=== PATIENT | male | born 2000 | race American Indian/Alaskan Native ===

== ENCOUNTER 2021-05-15 19:52 | Emergency (ER) | payer SELFPAY ==
[2021-05-15 19:58] VITALS: BP 122/62
--- NOTE | 2021-05-15 20:28 | XRay Report ---
LEFT FOOT 3 VIEWS INDICATION / CLINICAL INFORMATION: Jumped down 7 ft into tool box....fall with left foot pain. COMPARISON: None available. FINDINGS: BONES / JOINT(S): No acute fracture or subluxation. No significant arthritis. SOFT TISSUES: There is soft tissue irregularity/laceration involving the heel pad with an overlying b andage present. No radiopaque foreign body is seen. ADDITIONAL FINDINGS: None. Signer Name: Sang Diaz MD Signed: 05/15/2021 8:24 PM Workstation Name: [id number]
[2021-05-15] MEDS ORDERED: HYDROcodone/ACETAMINOPHEN 5-325 MG TAB PO ONE (20:34)
[2021-05-15] MEDS ORDERED: cephALEXin 500 MG CAP PO ONE (20:34)
[2021-05-15] MEDS ORDERED: LIDOCAINE (1%) 10 MG/1 ML VIAL 20 ML MDV INFILTRATI ONE (20:34)
--- NOTE | 2021-05-15 20:41 | Emergency Department Report ---
ED General Adult HPI - General Chief complaint: Extremity Injury, Lower Stated complaint: DEEP LACERATION TO LEFT FOOT Source: patient Mode of arrival: Ambulatory Limitations: No Limitations - History of Present Illness Initial comments: Patient 21-year-old male who presents for a laceration to the right foot. States he jumped over upstairs rail landing on his heel causing laceration versus metal tool box inside his house. Patient was able to partially weight- bear to get to vehicle to present to ED tonight. Last tetanus 1 year ago. There is no numbness tingling there is no obvious deformity. Bleeding controlled with direct pressure applied by patient. - Related Data Previous Rx's Medication Instructions Recorded Last Taken Type cephALEXin [Keflex] 500 mg PO Q8HR 7 Days #21 cap 05/15/21 Unknown Rx traMADoL [Ultram] 50 mg PO Q6HR PRN #12 tablet 05/15/21 Unknown Rx Allergies Allergy/AdvReac Type Severity Reaction Status Date / Time No Known Allergies Allergy Unverified 05/15/21 19:55 ED Review of Systems ROS: Stated complaint: DEEP LACERATION TO LEFT FOOT Other details as noted in HPI Constitutional: denies: chills, fever Eyes: denies: eye pain, eye discharge, vision change ENT: denies: ear pain, throat pain Respiratory: denies: cough, shortness of breath, wheezing Cardiovascular: denies: chest pain, palpitations Endocrine: no symptoms reported Gastrointestinal: denies: abdominal pain, nausea, diarrhea Genitourinary: denies: urgency, dysuria Musculoskeletal: other (foot laceration). denies: back pain, joint swelling, arthralgia Skin: other (laceration). denies: rash, lesions Neurological: denies: headache, weakness, paresthesias Psychiatric: denies: anxiety, depression Hematological/Lymphatic: denies: easy bleeding, easy bruising ED Past Medical Hx - Past Medical History Previous Medical History?: No - Social History Smoking Status: Current Some Day Smoker - Medications Home Medications: Home Medications Medication Instructions Recorded Confirmed Last Taken Type cephALEXin [Keflex] 500 mg PO Q8HR 7 Days #21 cap 05/15/21 Unknown Rx traMADoL [Ultram] 50 mg PO Q6HR PRN #12 tablet 05/15/21 Unknown Rx ED Physical Exam - General Limitations: No Limitations General appearance: alert, in no apparent distress - Head Head exam: Present: normocephalic, normal inspection - Expanded Head Exam Expanded Head exam: Absent: laceration, abrasion, contusion, hematoma - Eye Eye exam: Present: normal appearance, EOMI Pupils: Present: normal accommodation - ENT ENT exam: Present: normal exam, mucous membranes moist - Neck Neck exam: Present: normal inspection, full ROM. Absent: tenderness - Respiratory Respiratory exam: Present: normal lung sounds bilaterally. Absent: respiratory distress, wheezes, stridor, chest wall tenderness - Cardiovascular Cardiovascular Exam: Present: regular rate, normal rhythm, normal heart sounds. Absent: systolic murmur, diastolic murmur, rubs, gallop - GI/Abdominal GI/Abdominal exam: Present: soft, normal bowel sounds. Absent: distended, tenderness, guarding, rebound, rigid, bruit, hernia - Rectal Rectal exam: Present: deferred - Extremities Exam Extremities exam: Present: normal inspection, full ROM, normal capillary refill - Expanded Lower Extremity Exam Left Foot/Toe exam: Present: full ROM, tenderness, laceration (10 cm laceration left heel , no nerve or tendon damage rom intact , distal pulses intact ), calcaneal tenderness. Absent: ecchymosis, deformity, crepidus, dislocation, foreign body, tenderness at base of 5th metatarsal Neuro vascular tendon exam: Absent: pulse deficit, motor deficit, sensory deficit, tendon deficit Gait: Positive: observed and limited by pain - Back Exam Back exam: Present: normal inspection, full ROM. Absent: tenderness, muscle spasm, paraspinal tenderness, vertebral tenderness - Neurological Exam Neurological exam: Present: alert, oriented X3, CN II-XII intact, reflexes normal. Absent: motor sensory deficit - Expanded Neurological Exam Expanded Patient oriented to: Present: person, place, time Speech: Present: fluid speech Motor strength exam: RUE: 5, LUE: 5, RLE: 5, LLE: 5 DTR: ankle (R): 2+, ankle (L): 2+ Best Eye Response ([place]): (4) open spontaneously Best Motor Response ([place]): (6) obeys commands Best Verbal Response ([place]): (5) oriented [place] Total: 15 - Psychiatric Psychiatric exam: Present: normal affect, normal mood - Skin Skin exam: Present: warm, dry, intact, normal color, other (laceration as above ). Absent: rash ED Course Vital Signs 05/15/21 19:56 Temperature 98.0 F Pulse Rate 83 Respiratory 18 Rate Blood Pressure 122/62 O2 Sat by Pulse 98 Oximetry - Laceration /Wound Repair Left Plantar Foot Wound Location: lower extremity (left heel laceration 10 cm irregular, no nerve, tendon, or muscle damage, rom intact, distal pulses intact, bleeding is controled, wound cleaned with betadine solution, anesthesia wiht 1% lidocaine x 5 cc, wound irrigated with 250 cc sterile saline wound manually exsplored no foreign body no nerve ) - Moderate Sedation Additional Comments: left heel laceration 10 cm irregular, no nerve, tendon, or muscle damage, rom intact, distal pulses intact, bleeding is controled, wound cleaned with betadine solution, anesthesia wiht 1% lidocaine x 5 cc, wound irrigated with 250 cc sterile saline wound manually exsplored no foreign body no nerve muscle or tendon damage, wound closed with 3.0 prolene x 25 sutures running, edges well approximated, all bleeding controlled , sterile dressing applied, PULP DRIER remains intact , rom remains intact, pt given wound care instructions including follow up with primary care doctor in 2-3 days for wound check, and 7-10 days for suture removal. ED Medical Decision Making - Medical Decision Making Laceration repaired see procedure note. Patient given wound care instructions including follow-up with primary care doctor in 2 days for wound check, follow- up with primary care doctor in 7 to 10 days for suture removal, patient given prescriptions, return to ED for symptoms of infection. Critical care attestation.: If time is entered above; I have spent that time in minutes in the direct care of this critically ill patient, excluding procedure time. ED Disposition Clinical Impression: Laceration of foot Qualifiers: Encounter type: initial encounter Laterality: left Qualified Code(s): S91.312A - Laceration without foreign body, left foot, initial encounter Disposition: - TO HOME OR SELFCARE Is pt being admited?: No Does the pt Need Aspirin: No Condition: Stable Instructions: Sutured Wound Care, Crutch Use, Adult, [id number] Additional Instructions: take medications as prescribed, follow up with your primary care doctor in 2-3 days and 7-10 days for suture removal, pt verbalized agreement and understanding of discharge plan. Prescriptions: cephALEXin [Keflex] 500 mg PO Q8HR 7 Days #21 cap traMADoL [Ultram] 50 mg PO Q6HR PRN #12 tablet PRN Reason: Pain Referrals: PRIMARY CARE, [Primary Care Provider] - 3-5 Days LELE SANDOVAL MD [Referring] - 3-5 Days Forms: Work/School Release Form(ED) Time of Disposition: 22:01
== END 2021-05-15 22:25 | disposition home or self-care (01) ==
LOC: ED 19:52
DX: S91.312A Laceration without foreign body, left foot, initial encounter (principal); F17.200 Nicotine dependence, unspecified, uncomplicated; Z79.899 Other long term (current) drug therapy; X58.XXXA Exposure to other specified factors, initial encounter; Y93.89 Activity, other specified; Y92.89 Other specified places as the place of occurrence of the external cause; Y99.8 Other external cause status

== ENCOUNTER 2021-05-27 22:15 | Emergency (ER) | payer SELFPAY ==
[2021-05-27 23:43] VITALS: BP 122/74
--- NOTE | 2021-05-28 00:12 | Emergency Department Report ---
ED Lower Extremity HPI - General Chief Complaint: Laceration/Recheck/Suture Stated Complaint: LT FOOT STITCHES TO BE REMOVED Time Seen by Provider: 05/28/21 00:01 Source: patient Mode of arrival: Ambulatory Limitations: No Limitations - History of Present Illness Initial Comments: 21-year-old male status post laceration to the left heel about 7 days ago presents emerge department seeking suture removal. Complaining of pain in the area of concern which might not be quite healed. Reports no discharge from the wound no redness no swelling no fever chills or sweats Complaint: foot injury -: Sudden Severity: mild Improves With: nothing Worsens With: nothing - Related Data Previous Rx's Medication Instructions Recorded Last Taken Type cephALEXin [Keflex] 500 mg PO Q8HR 7 Days #21 cap 05/15/21 Unknown Rx traMADoL [Ultram] 50 mg PO Q6HR PRN #12 tablet 05/15/21 Unknown Rx Allergies Allergy/AdvReac Type Severity Reaction Status Date / Time No Known Allergies Allergy Unverified 05/15/21 19:55 ED Review of Systems ROS: Stated complaint: LT FOOT STITCHES TO BE REMOVED Other details as noted in HPI Comment: All other systems reviewed and negative ED Past Medical Hx - Past Medical History Previous Medical History?: No - Surgical History Past Surgical History?: No - Social History Smoking Status: Current Every Day Smoker Substance Use Type: None - Medications Home Medications: Home Medications Medication Instructions Recorded Confirmed Last Taken Type cephALEXin [Keflex] 500 mg PO Q8HR 7 Days #21 cap 05/15/21 Unknown Rx traMADoL [Ultram] 50 mg PO Q6HR PRN #12 tablet 05/15/21 Unknown Rx ED Physical Exam - General Limitations: No Limitations - Extremities Exam Extremities exam: Present: other (Laceration healing the healing stages and area of high pressure.) - Expanded Lower Extremity Exam Left Foot/Toe exam: Present: laceration (The sutures are in place in the healing process area of nonhealing towards the distal aspect of the with no discharge. No cellulitis noted no pus drainage) Neuro vascular tendon exam: Present: no vascular compromise - Back Exam Back exam: Present: normal inspection ED Course Vital Signs 05/27/21 23:10 Temperature 98.0 F Pulse Rate 91 H Respiratory 18 Rate Blood Pressure 122/74 O2 Sat by Pulse 97 Oximetry ED Lower Extremity MDM - Medical Decision Making 21-year-old male presents emerge department seeking suture removal the wound is not quite quite ready for suture removal at this present time laceration is to the left heel in the area of high-pressure Critical care attestation.: If time is entered above; I have spent that time in minutes in the direct care of this critically ill patient, excluding procedure time. ED Disposition Clinical Impression: Laceration of foot Disposition: DC-01 TO HOME OR SELFCARE Is pt being admited?: No Does the pt Need Aspirin: No Condition: Stable Instructions: Sutured Wound Care Additional Instructions: Please follow-up in 3 to 4 days to be evaluated for possible suture removal Referrals: [facility] [Provider Group] - 3-5 Days
== END 2021-05-28 00:42 | disposition home or self-care (01) ==
LOC: ED 22:15
DX: S91.312D Laceration without foreign body, left foot, subsequent encounter (principal); F17.200 Nicotine dependence, unspecified, uncomplicated; Z79.899 Other long term (current) drug therapy; X58.XXXD Exposure to other specified factors, subsequent encounter
CPT/HCPCS: 99282